=== PATIENT | female | born 1985 | race Two or more races ===

== ENCOUNTER 2016-08-04 11:27 | Emergency (ER) | payer SELFPAY ==
[~2016-08-04 11:27] MED LIST: ADVAIR 2501 DISK W/D IH; ADVAIR HFA 1151 PUFF; ALBUTEROL17 GM; ALBUTEROL17 GM INH; AZITHROMYCIN250 MG PO; BENADRYL25 M3 PO; CARAFATE1 G2 PO; CYCLOBENZAPRINE10 M1 PO; FLEXERIL10 MG PO; GARAMYCIN5 M2 OP; IRON325 M1 PO; LORTAB 5/500 TA1 TAB PO; MACROBID100 MG/CAP PO; MOTRIN800 MG PO; NORCO 5/325 TAB1 TAB PO; NORCO 5/3251 TAB PO; OMEPRAZOLE20 M3 PO; PEPCID20 MG PO; PERCOCET 5/3251 TAB PO; PREDNISONE20 MG PO; PRENATAL1 EACH PO; PRENATAL1 TAB; TAMIFLU75 MG PO; VENTOLIN HFA18 G2 PO; WELLBUTRIN SR150 M1 PO; WELLBUTRIN SR150 MG PO; ZITHROMAX250 MG PO; ZOFRAN4 M2 PO; ZOFRAN8 MG PO
[2016-08-04 14:03] LABS: URINE APPEARANCE CLEAR; URINE BILIRUBIN NEGATIVE (NEG); URINE BLOOD NEGATIVE (NEG); URINE COLOR YELLOW; URINE GLUCOSE (UA) NEGATIVE (NEG); URINE KETONE NEGATIVE (NEG); URINE LEUKOCYTE ESTERASE POSITIVE (NEG); URINE NITRITE NEGATIVE (NEG); URINE PROTEIN SMALL (NEG)
[2016-08-04 14:23] LABS: URINE EPITHELIAL CELLS 0-1 /[HPF] (0-10); URINE RBC 0-1 /[HPF] (0-5); URINE WBC 0-1 /[HPF] (0-5)
[2016-08-04] MEDS ORDERED: CYCLOBENZAPRINE10 M1 PO (15:09)
[2016-08-04] MEDS ORDERED: NORCO 5-325 TA1 EACH PO (15:09)
[2016-08-04] MEDS ORDERED: PROAIR HFA8.5 GM INH (15:09)
[2016-08-04] MEDS ORDERED: KEFLEX500 M4 PO (15:09)
[2016-08-04] MEDS ORDERED: ADVAIR 25028 BLISTE1 PO (15:09)
[2016-08-04] MEDS ORDERED: IBUPROFEN600 M1 PO (15:09)
[2016-12-03] MEDS ORDERED: NORCO 5-325 TA1 EACH PO (16:52)
[2016-12-03] MEDS ORDERED: ZANTAC150 M1 PO (16:52)
[2016-12-03] MEDS ORDERED: PROMETHAZINE HC25 M3 PO (16:52)
== END 2016-08-04 15:16 ==
LOC: EDMED 11:27
PROVIDERS: Emergency Medicine
DX: N39.0 Urinary tract infection, site not specified (principal); J45.909 Unspecified asthma, uncomplicated; Z79.51 Long term (current) use of inhaled steroids; Z88.5 Allergy status to narcotic agent; Z98.890 Other specified postprocedural states; F17.210 Nicotine dependence, cigarettes, uncomplicated
CPT/HCPCS: J1170; J1885